=== PATIENT | male | born 1995 | race Caucasian/White ===

== ENCOUNTER 2017-06-19 10:47 | Emergency (ER) | payer OTHER ==
[2017-06-19 11:31] VITALS: BP 148/66
--- NOTE | 2017-06-19 11:36 | UC ---
Lower Extremity/Ankle HPI - HPI Summary HPI Summary: 22 year old male presents with right big toe pain after rolling it while playing [employer]. - History of Current Complaint Chief Complaint: UCLowerExtremity Stated Complaint: RIGHT BIG TOE COMPLAINT Time Seen by Provider: 06/19/17 11:36 Hx Obtained From: Patient Onset/Duration: Sudden Onset Severity Initially: Moderate Severity Currently: Moderate Pain Scale Used: 0-10 Numeric - 7 - Allergies/Home Medications Allergies/Adverse Reactions: Allergies Allergy/AdvReac Type Severity Reaction Status Date / Time cats,pollen Allergy Eyes Uncoded 06/19/17 11:31 Itchy/Swollen/Red/Watery Home Medications: Home Medications Famotidine [Pepcid AC] 10 mg PO DAILY 06/19/17 [History Confirmed 06/19/17] Ibuprofen TAB* [Motrin TAB* 800 MG] 800 mg PO ONCE PRN 06/19/17 [History Confirmed 06/19/17] PMH/Surg Hx/FS Hx/Imm Hx Previously Healthy: Yes - Surgical History Surgical History: Yes Surgery Procedure, Year, and Place: wisdom teeth - Social History Alcohol Use: Weekly Alcohol Amount: 15 Substance Use Type: None Smoking Status (MU): Never Smoked Tobacco Review of Systems Constitutional: Negative - RIGHT BIG TOE PAIN/SWELLING Skin: Negative Eyes: Negative ENT: Negative Respiratory: Negative Cardiovascular: Negative Gastrointestinal: Negative Genitourinary: Negative Motor: Negative Neurovascular: Negative Musculoskeletal: Other: - right big toe pain Neurological: Negative Psychological: Negative All Other Systems Reviewed And Are Negative: Yes Physical Exam Triage Information Reviewed: Yes Vital Signs: Initial Vital Signs Temp 36.8 C 06/19/17 11:24 Pulse 52 06/19/17 11:24 Resp 20 06/19/17 11:24 BP 148/66 06/19/17 11:24 Eye Exam: Normal ENT Exam: Normal Dental Exam: Normal Neck exam: Normal Neck: Positive: 1 Respiratory Exam: Normal Cardiovascular Exam: Normal Abdominal Exam: Normal Musculoskeletal: Positive: Other: - right big toe pain Neurological Exam: Normal Psychological Exam: Normal Skin Exam: Normal Lower Extremity Course/Dx - Differential Dx/Diagnosis Provider Diagnoses: RIGHT BIG TOE SPRAIN Discharge - Discharge Plan Condition: Stable Disposition: HOME Prescriptions: Ibuprofen TAB* [Motrin TAB* 800 MG] 800 mg PO Q6H #30 tab Patient Education Materials: Foot Sprain (ED) Referrals: Alexi Jarrett MD [Medical Doctor] -
--- NOTE | 2017-06-19 12:05 | RAD ---
Indication: RIGHT great toe pain and swelling for 3 days following hyperflexion injury during sports. Comparison: No relevant prior exams available on the [facility] PACS for comparison. Technique: AP, lateral, and oblique views RIGHT foot. Report: Normal variant bipartite sesamoid at the medial head of the flexor hallucis brevis. Negative for fracture or malalignment. Negative for stigmata of stress reaction. Unremarkable soft tissue contours. IMPRESSION: Negative radiographic exam of the RIGHT foot.
== END 2017-06-19 12:38 | disposition home or self-care (01) ==
LOC: UCCORT 10:47
DX: S93.501A Unspecified sprain of right great toe, initial encounter (principal); J30.81 Allergic rhinitis due to animal (cat) (dog) hair and dander; X58.XXXA Exposure to other specified factors, initial encounter
CPT/HCPCS: 99203; G0463